=== PATIENT | female | born 1980 | race African-American/Black ===

== ENCOUNTER 2018-12-01 02:51 | Emergency (ER) | payer OTHER ==
[~2018-12-01] VITALS: Ht 154.9 cm; Wt 77.1 kg
[~2018-12-01 02:51] MED LIST: CIPRO500 MG PO; CLEOCIN HCL150 MG PO; HYDROCODONE-AP1 EAC6 PO; IBUPROFEN 600600 M1 PO; LORTABELXR PO; NOHOMEMEDICATIONS; NORCO 5-325 TA1 EACH PO; ONDANSETRON HCL4 M2 PO; PREDNISONE 20 M20 MG PO; XOPENEX HFA15 GM IH; ZPAK PO
[2018-12-01] MEDS ORDERED: CEPACOL SORE T1 EAC7 PO (03:29)
[2018-12-01] MEDS ORDERED: NAPROSYN500 MG PO (03:29)
[2018-12-01 04:30] VITALS: BP 124/67
== END 2018-12-01 04:30 | disposition home or self-care (01) ==
LOC: ER 02:51
DX: J02.8 Acute pharyngitis due to other specified organisms (principal); B97.89 Other viral agents as the cause of diseases classified elsewhere; J45.909 Unspecified asthma, uncomplicated; Z88.0 Allergy status to penicillin

== ENCOUNTER 2019-03-21 10:55 | Emergency (ER) | payer OTHER ==
[~2019-03-21] VITALS: Ht 154.9 cm; Wt 77.1 kg
[~2019-03-21 10:55] MED LIST changes: +CEPACOL SORE T1 EAC7 PO; +NAPROSYN500 MG PO
[2019-03-21 11:26] LABS: URINE BILIRUBIN NEGATIVE (Negative); URINE BLOOD 2+ (Negative); URINE CLARITY CLEAR; URINE COLOR YELLOW; URINE GLUCOSE-RANDOM* NEGATIVE (Negative); URINE KETONES NEGATIVE (Negative); URINE LEUKOCYTES-REFLEX NEGATIVE (Negative); URINE NITRITE-REFLEX NEGATIVE (Negative); URINE PROTEIN (DIPSTICK) NEGATIVE (Negative); URINE SPECIFIC GRAVITY 1.025 (1.005-1.035); URINE UROBILINOGEN 0.2 E.U./dl (0.2-1.0)
[2019-03-21 11:34] LABS: SQUAMOUS >10 Many /LPF (0-3)
[2019-03-21 11:35] LABS: BACTERIA-REFLEX 1-9 Few /HPF (None Seen); CASTS None Seen /LPF (None Seen); CRYSTALS None Seen /LPF (None Seen); URINE RBC 0-2 Rare /HPF (0-2); URINE WBC-REFLEX 0-5 Rare /HPF (0-5)
[2019-03-21] MEDS ORDERED: NEURONTIN 300300 M1 PO (11:39)
[2019-03-21 11:52] LABS: BASOPHILS 0.9 % (0.0-2.0); EOSINOPHILS 2.2 % (0.0-3.0); HEMATOCRIT 37.2 % (37.0-47.0); HEMOGLOBIN 12.5 gm/dL (12.0-15.0); LYMPHOCYTES 23.7 % (24.0-44.0); MCH 29.3 pg (26.0-34.0); MCHC 33.5 g/dL (28.0-37.0); MCV 87.5 fL (80.0-100.0); PLATELET COUNT 397 thou/uL (150-400); POLYS 68.2 % (36.0-66.0); RBC 4.25 mil/uL (4.20-5.00); RDW 12.9 % (10.5-14.5); WBC 7.4 thou/uL (4.0-11.0)
[2019-03-21 11:59] LABS: CALCIUM 8.9 mg/dL (8.5-10.1); CREATININE 0.7 mg/dL (0.6-1.0); POTASSIUM 3.8 mmol/L (3.5-5.1)
[2019-03-21 12:42] VITALS: BP 112/78
[2019-03-21] MEDS ORDERED: KEFLEX500 M1 PO (14:16)
== END 2019-03-21 14:25 | disposition home or self-care (01) ==
LOC: ER 10:55
PROVIDERS: Nurse Practitioner Family
DX: N39.0 Urinary tract infection, site not specified (principal); G89.18 Other acute postprocedural pain; J45.909 Unspecified asthma, uncomplicated; Z88.0 Allergy status to penicillin